=== PATIENT | female | born 1970 | race Caucasian/White ===

== ENCOUNTER 2016-12-16 06:05 | Emergency (ER) | payer OTHER, MEDICAID ==
[2016-12-16 08:58] VITALS: BP 126/84
== END 2016-12-16 08:58 | disposition home or self-care (01) ==
LOC: ED 06:05
DX: M25.562 Pain in left knee (principal); M25.571 Pain in right ankle and joints of right foot; G40.909 Epilepsy, unspecified, not intractable, without status epilepticus; J45.909 Unspecified asthma, uncomplicated; F79 Unspecified intellectual disabilities